=== PATIENT | male | born 1995 | race African-American/Black ===

== ENCOUNTER → 2020-12-23 | Outpatient (CLI) | payer OTHER ==
--- NOTE | 2020-12-23 12:38 | REPVR ---
PROCEDURE INFORMATION: Exam: MR Lumbar Spine Without Contrast Exam date and time: 12/23/2020 8:29 AM Age: 25 years old Clinical indication: Low back pain; Patient HX: Lbp, strain from work; Additional info: Strain lower back, R/O stenosis vs hnp TECHNIQUE: Imaging protocol: Multiplanar magnetic resonance images of the lumbar spine without intravenous contrast. COMPARISON: No relevant prior studies available. FINDINGS: Vertebrae: Anatomic alignment. No acute fracture seen. Spinal cord: The conus medullaris ends normally. The intervertebral discs are preserved in height and signal intensity. L1-L2: No significant disc disease. No significant spinal canal stenosis. No neural foraminal stenosis. L2-L3: No significant disc disease. No significant spinal canal stenosis. No neural foraminal stenosis. L3-L4: No significant disc disease. No significant spinal canal stenosis. No neural foraminal stenosis. L4-L5: No significant disc disease. No significant spinal canal stenosis. No neural foraminal stenosis. L5-S1: No significant disc disease. No significant spinal canal stenosis. No neural foraminal stenosis. Soft tissues: No evidence of muscle strain or ligamentous injury. IMPRESSION: Unremarkable MRI lumbar spine. Electronically signed by: Magda Munguia On 12/23/2020 12:38:21 PM
== END ==
LOC: M RAD 07:34
PROVIDERS: ATTEND Physician Assistant
DX: S39.012D Strain of muscle, fascia and tendon of lower back, subsequent encounter (principal); X58.XXXA Exposure to other specified factors, initial encounter; Y92.9 Unspecified place or not applicable; Y93.9 Activity, unspecified; Y99.9 Unspecified external cause status